=== PATIENT | female | born 1940 | race Two or more races ===

== ENCOUNTER 2020-10-29 09:08 | Emergency (ER) | payer OTHER ==
[~2020-10-29] VITALS: Ht 144.8 cm; Wt 48.1 kg
[~2020-10-29 09:08] MED LIST: BACLOFEN10 MG PO
[2020-10-29] MEDS ORDERED: METFORMIN HCL500 M3 PO (09:22)
[2020-10-29] MEDS ORDERED: GUAIFENESIN400 MG PO (11:38)
[2020-10-29] MEDS ORDERED: VITAMIN C WIT1000 MG PO (11:38)
[2020-10-29] MEDS ORDERED: ACETAMINOPHEN650 M2 PO (11:38)
[2020-10-29] MEDS ORDERED: PEPCID AC20 MG PO (11:43)
== END 2020-10-29 11:59 | disposition home or self-care (01) ==
LOC: ER 09:08
DX: J06.9 Acute upper respiratory infection, unspecified (principal); Z03.818 Encounter for observation for suspected exposure to other biological agents ruled out

== ENCOUNTER 2023-08-08 09:45 | Emergency (ER) | payer OTHER ==
[~2023-08-08] VITALS: Ht 144.8 cm; Wt 47.2 kg
[~2023-08-08 09:45] MED LIST changes: +ACETAMINOPHEN650 M2 PO; +GUAIFENESIN400 MG PO; +METFORMIN HCL500 M3 PO; +PEPCID AC20 MG PO; +VITAMIN C WIT1000 MG PO
[2023-08-08] MEDS ORDERED: PANTOPRAZOLE SO40 MG PO (10:09)
[2023-08-08] MEDS ORDERED: ENALAPRIL MALEAT5 MG PO (10:10)
[2023-08-08 10:56] LABS: HEMATOCRIT 35.5 % (36.0-45.00); HEMOGLOBIN 11.6 g/dL (12.0-15.00); MEAN CORPUSCULAR HEMOGLOBIN 20.9 pg (27.00-32.0); MEAN CORPUSCULAR HGB CONC 32.6 g/dl (32.0-36.0); PLATELET COUNT 240 K/uL (150-450); RED BLOOD COUNT 5.52 M/uL (4.00-6.00); RED CELL DISTRIBUTION WIDTH 16.8 % (11.5-14.5)
[2023-08-08 10:58] LABS: MEAN CELL VOLUME 64.2 fL (80.00-100.00)
[2023-08-08 11:30] LABS: ALBUMIN 3.9 gm/dL (3.4-5.0); BILIRUBIN TOTAL 0.7 mg/dL (0.3-1.2); CALCIUM 9.7 mg/dL (8.5-10.1); CREATININE SERUM 0.98 mg/dL (0.55-1.02); GFR 54.07; POTASSIUM 4.34 mEq/L (3.5-5.1); TOTAL PROTEIN 7.9 gm/dL (6.4-8.2)
[2023-08-08] MEDS ORDERED: NASAL MIST126 ML NASAL (11:39)
[2023-08-08] MEDS ORDERED: TUSSIN100 MG/51 PO (11:39)
[2023-08-08] MEDS ORDERED: OSEL75CA PO (11:39)
== END 2023-08-08 12:12 | disposition home or self-care (01) ==
LOC: ER 09:46
PROVIDERS: General Practice
DX: J10.1 Influenza due to other identified influenza virus with other respiratory manifestations (principal); Z88.0 Allergy status to penicillin; E11.9 Type 2 diabetes mellitus without complications; Z79.84 Long term (current) use of oral hypoglycemic drugs; I10 Essential (primary) hypertension; Z20.822 Contact with and (suspected) exposure to COVID-19
CPT/HCPCS: 36415; 96365; 99284; J3490